=== PATIENT | female | born 1980 ===

== ENCOUNTER 2016-11-02 10:37 | Emergency (ER) | payer OTHER ==
[2016-11-02 10:50] VITALS: BMI 32.4
[2016-11-02 10:51] VITALS: TEMP 98.4; O2SAT 99
--- NOTE | 2016-11-02 11:30 | C.PDOC ---
History Of Present Illness 36 y/o female presents to the ED with complains of left shoulder pain x3 days. Pt reports decreased ROM secondary to pain. No pain medications taken at home. Pt denies injury, sensory changes or any other complaints. Right hand dominant. No history of similar symptoms in past. Time Seen by Provider: 11/02/16 11:19 Chief Complaint (Nursing): Upper Extremity Problem/Injury History Per: Patient, Other (Family translated for patient) History/Exam Limitations: language barrier Onset/Duration Of Symptoms: Days Current Symptoms Are (Timing): Still Present Quality: "Pain" Severity: Moderate Recent travel outside of the [place]: No Past Medical History Reviewed: Historical Data, Nursing Documentation, Vital Signs Vital Signs: Last Vital Signs Temp 98.4 F 11/02/16 10:49 Pulse 73 11/02/16 12:14 Resp 18 11/02/16 12:14 BP 121/74 11/02/16 12:14 Pulse Ox 99 11/02/16 13:30 - [facility] Procedures BILAT TUBAL DIVISION NEC (08/26/14) INJECT RH IMMUNE GLOBUL (08/26/14) LOW CERVICAL (08/26/14) Family History: States: Unknown Family Hx - Social History Hx Alcohol Use: No Hx Substance Use: No - Immunization History Hx Tetanus Toxoid Vaccination: No Hx Influenza Vaccination: No Hx Pneumococcal Vaccination: No Review Of Systems Except As Marked, All Systems Reviewed And Found Negative. Constitutional: Negative for: Fever Musculoskeletal: Positive for: Shoulder Pain (left) Neurological: Negative for: Weakness, Numbness Physical Exam - Physical Exam Appears: Non-toxic, In Acute Distress (in painful distress) Skin: Warm, Dry, No Rash Head: Atraumatic, Normacephalic Eye(s): bilateral: Normal Inspection, EOMI Nose: Normal Oral Mucosa: Moist Neck: Normal ROM, Supple Chest: Symmetrical Cardiovascular: Rhythm Regular Respiratory: Normal Breath Sounds Extremity: No Normal ROM (limited ROM secondary to pain), Tenderness (diffuse tenderness left shoulder), Capillary Refill (<2 seconds), No Deformity, No Swelling Pulses: Left Radial: Normal, Right Radial: Normal Neurological/Psych: Oriented x3, Normal Motor, Normal Sensation ED Course And Treatment O2 Sat by Pulse Oximetry: 99 (on room air) Pulse Ox Interpretation: Normal - Other Rad XR left shoulder X-Ray: Viewed By Me, Read By Radiologist Interpretation: Accession No. : [id number]. Patient Name / ID : MINA GROVE / [id number]. Exam Date : 11/02/2016 11:51:56 ( Approved ). Study Comment : Sex / Age : F / 36Y. Creator : Margaret Nava V. Dictator : Margaret Nava V. Manager Card : [employer] Equipment Operator : Margaret Nava V. Approver2 : Report Date : 2016 12:54:55. My Comment : . PROCEDURE: Radiographs of the Left Shoulder. HISTORY: pain. COMPARISON: No prior. FINDINGS: BONES: Normal. No fracture. JOINTS: Normal. Glenohumeral and acromioclavicular joints preserved. No osteoarthritis. SOFT TISSUES: Left extraosseous soft soft tissue calcification/ ossification. OTHER FINDINGS: None. IMPRESSION: Left calcific rotator cuff tendinosis and/or calcific bursitis. Progress Note: Plan: XR left shoulder, toradol, flexeril. On reassessment, patient is sleeping in no distress. Pt is resting comfortably, and is in no acute distress. Patient was instructed to follow up with physician/clinic in 1- 2 days for further evaluation. Disposition - Disposition Disposition: HOME/ ROUTINE Disposition Time: 12:11 Condition: GOOD Additional Instructions: Vaya a medrano mdico o la clnica en 1-3 jay sin falta, para mas evaluacin. [facility] los medicamentos hilario indicado. Volver a la amie de emergencia en cualquier momento si los sntomas persisten o empeoran. Prescriptions: Naproxen [Naprosyn] 1 tab PO BID PRN #20 tab PRN Reason: Pain Instructions: Shoulder Pain (ED) Print Language: DANISH - Clinical Impression Clinical Impression: Shoulder pain, Tendinitis - PA / CUSTOMER SERVICE TRAINER / Resident Statement MD/DO has reviewed & agrees with the documentation as recorded. - Scribe Statement The provider has reviewed the documentation as recorded by the Scribanson Baron All medical record entries made by the Johnibanson were at my direction and personally dictated by me. I have reviewed the chart and agree that the record accurately reflects my personal performance of the history, physical exam, medical decision making, and the department course for this patient. I have also personally directed, reviewed, and agree with the discharge instructions and disposition.
[2016-11-02 12:15] VITALS: BP 121/74; PULSE 73; RESP 18
--- NOTE | 2016-11-02 12:56 | RAD ---
PROCEDURE: Radiographs of the Left Shoulder HISTORY: pain COMPARISON: No prior. FINDINGS: BONES: Normal. No fracture. JOINTS: Normal. Glenohumeral and acromioclavicular joints preserved. No osteoarthritis. SOFT TISSUES: Left extraosseous soft soft tissue calcification/ ossification OTHER FINDINGS: None. IMPRESSION: Left calcific rotator cuff tendinosis and/or calcific bursitis.
== END 2016-11-02 12:30 | disposition home or self-care (01) ==
LOC: C.ER 10:37
DX: M75.92 Shoulder lesion, unspecified, left shoulder (principal); M25.512 Pain in left shoulder
CPT/HCPCS: 73030; 96372; 99285; J1885

== ENCOUNTER 2016-12-03 18:15 | Emergency (ER) | payer OTHER ==
[2016-12-03 18:16] VITALS: BMI 32.4
[2016-12-03 18:36] VITALS: TEMP 98.6
--- NOTE | 2016-12-03 18:57 | C.PDOC ---
Chief Complaint (Nursing): Lower Extremity Problem/Injury Past Medical History Vital Signs: Last Vital Signs Temp 98.6 F 12/03/16 18:34 Pulse 88 12/03/16 18:34 Resp 17 12/03/16 18:34 BP 113/76 12/03/16 18:34 Pulse Ox 99 12/03/16 18:34 - [facility] Procedures BILAT TUBAL DIVISION NEC (08/26/14) INJECT RH IMMUNE GLOBUL (08/26/14) LOW CERVICAL (08/26/14) Family History: States: Unknown Family Hx - Social History Hx Alcohol Use: No Hx Substance Use: No - Immunization History Hx Tetanus Toxoid Vaccination: No Hx Influenza Vaccination: No Hx Pneumococcal Vaccination: No ED Course And Treatment O2 Sat by Pulse Oximetry: 99
[2016-12-03 19:56] VITALS: BP 124/75; PULSE 72; RESP 18; O2SAT 98
--- NOTE | 2016-12-03 20:06 | C.PDOC ---
History Of Present Illness A 31 year old female presents to the ER c/o left foot injury that occurred today. Patient notes she hit her foot against the metal frame of her bed. Patient notes redness and pain to the left foot. Patient denies weakness or numbness to the left foot. Pt also c/o of redness to left facial area she was bitten by an insect. Time Seen by Provider: 12/03/16 19:20 Chief Complaint (Nursing): Lower Extremity Problem/Injury History Per: Patient History/Exam Limitations: no limitations Onset/Duration Of Symptoms: Hrs Current Symptoms Are (Timing): Still Present Severity: Mild Additional History Per: Patient - Hip Description Of Injury: Struck With Object Past Medical History Reviewed: Historical Data, Nursing Documentation, Vital Signs Vital Signs: Last Vital Signs Temp 98.6 F 12/03/16 18:34 Pulse 72 12/03/16 19:55 Resp 18 12/03/16 19:55 BP 124/75 12/03/16 19:55 Pulse Ox 98 12/04/16 01:21 - [facility] Procedures BILAT TUBAL DIVISION NEC (08/26/14) INJECT RH IMMUNE GLOBUL (08/26/14) LOW CERVICAL (08/26/14) Family History: States: Unknown Family Hx - Social History Hx Alcohol Use: No Hx Substance Use: No - Immunization History Hx Tetanus Toxoid Vaccination: No Hx Influenza Vaccination: No Hx Pneumococcal Vaccination: No Review Of Systems Constitutional: Negative for: Fever, Chills Musculoskeletal: Positive for: Foot Pain (left) Skin: Positive for: Rash (redness, face) Neurological: Negative for: Weakness (Left foot), Numbness (Left foot) Physical Exam - Physical Exam Appears: Non-toxic, No Acute Distress Skin: Warm, Other (small erythematous insect bite to right cheek, no warmth, no fluctuance) Head: Atraumatic, Normacephalic Eye(s): bilateral: Normal Inspection Extremity: Tenderness (Erythema and tenderness and minimal swelling of the lateral left foot), Capillary Refill (< 2 sec), Other (ROM causes pain) Pulses: Left Dorsalis Pedis: Normal, Right Dorsalis Pedis: Normal Neurological/Psych: Oriented x3, Normal Speech, Normal Cognition, Normal Motor, Normal Sensation ED Course And Treatment O2 Sat by Pulse Oximetry: 98 (RA) Pulse Ox Interpretation: Normal - Other Rad X-Ray left foot X-Ray: Interpreted by Me, Viewed By Me Interpretation: Interpretation: no fractures or dislocation Medical Decision Making Medical Decision Making: Plans: -X-Ray of the left foot X-Ray shows no fractures or dislocation Patient's left foot is being TIA wrapped and applied in orthopedic shoes. Patient is ambulatory and instructed to follow up with PMD within 1-2 days. Disposition Counseled Patient/Family Regarding: Diagnosis - Disposition Disposition: HOME/ ROUTINE Disposition Time: 20:04 Condition: STABLE Additional Instructions: Levanta la pierna Applicar hielo Sigue con podiatra motrin por dolor Applicar crema de antibiotica en la nikos Regresa si peor Prescriptions: Ibuprofen [Motrin] 600 mg PO Q6H #30 tab Instructions: Foot Contusion (ED) Print Language: VINCENTIAN - Clinical Impression Clinical Impression: Contusion of left foot, Insect bite - Scribe Statement The provider has reviewed the documentation as recorded by the Scribe Ana brown All medical record entries made by the Scribe were at my direction and personally dictated by me. I have reviewed the chart and agree that the record accurately reflects my personal performance of the history, physical exam, medical decision making, and the department course for this patient. I have also personally directed, reviewed, and agree with the discharge instructions and disposition.
--- NOTE | 2016-12-04 08:24 | RAD ---
PROCEDURE: Left Foot Radiographs. HISTORY: pain, hit foot against bed frame COMPARISON: None. FINDINGS: BONES: Normal. No fracture. JOINTS: Normal. SOFT TISSUES: Dorsal soft tissue swelling. OTHER FINDINGS: None. IMPRESSION: No fracture.
== END 2016-12-03 20:12 | disposition home or self-care (01) ==
LOC: C.ER 18:15
DX: S90.32XA Contusion of left foot, initial encounter (principal); W22.03XA Walked into furniture, initial encounter; S00.86XA Insect bite (nonvenomous) of other part of head, initial encounter; W57.XXXA Bitten or stung by nonvenomous insect and other nonvenomous arthropods, initial encounter